=== PATIENT | male | born 1965 | race Caucasian/White ===

== ENCOUNTER → 2020-03-02 12:20 | Outpatient (BNVA) | payer OTHER, SELFPAY | PROVIDERS: Visit Provider Internal Medicine | DX: K40.90 Unilateral inguinal hernia, without obstruction or gangrene, not specified as recurrent (principal) | CPT/HCPCS: 99214 ==

== ENCOUNTER → 2020-03-09 11:13 | Outpatient (BNVA) | payer OTHER, SELFPAY | PROVIDERS: PCP Internal Medicine; Visit Provider Internal Medicine | DX: K40.90 Unilateral inguinal hernia, without obstruction or gangrene, not specified as recurrent (principal) | CPT/HCPCS: 99213 ==

== ENCOUNTER → 2020-03-19 11:12 | Outpatient (BNVA) | payer OTHER, SELFPAY | PROVIDERS: PCP Internal Medicine; Referring Provider Internal Medicine; Visit Provider Surgery | DX: K40.90 Unilateral inguinal hernia, without obstruction or gangrene, not specified as recurrent (principal) | CPT/HCPCS: 99212 ==

== ENCOUNTER 2020-04-03 06:03 | Day surgery (SDC) | payer OTHER, SELFPAY ==
[2020-04-03 06:13] VITALS: BMI 22.8
[2020-04-03 06:26] VITALS: BP 128/83; PULSE 83; RESP 16; TEMP 36.5; O2SAT 98
--- NOTE | 2020-04-03 07:38 | HO.ANESPROP2 ---
[facility] Past Medical History Medical History Left inguinal hernia Social History Social History Alcohol intake: never Smoking Status: Never smoker Use of substances other than those prescribed or required for medical reasons: No Advance Directives: No Meds Allergies Allergy/AdvReac Type Severity Reaction Status Date / Time No Known Allergies Allergy Verified 04/02/20 11:24 Exam Exam Date and Time: April 03, 2020 0738 Height,Weight and Vital Signs: Height 5 ft 9 in Weight 70.307 kg Last Vital Signs Temp 97.7 F 04/03/20 06:26 Pulse 83 04/03/20 06:26 Resp 16 04/03/20 06:26 BP 128/83 04/03/20 06:26 Pulse Ox 98 04/03/20 06:26 Airway Mallampati Class: II TM Dist: >3cm Neck ROM: Full Assessment and Plan Assessment Anesthesia Assessment: Anesthesia Plan Discussed and Chart Reviewed Final Anesthetic Review NPO: Yes ASA Class: I Final Preanesthetic Review: No Changes in Pt Med Stat, Meds/Allgs Chart Reviewed, Consent Obtained/Reviewed and Anes Risks/Benef Reviewed Patient Risk: Low Procedure Risk: Low Assessment/Block/Sedation in SS: Assess/Block/Sedation-SS Anesthetic Plan Anesthetic Plan: GA Disposition: Standard PACU
--- NOTE | 2020-04-03 08:05 | MHC.SHP ---
Pre-Procedural Eval Section B Chief Complaint: Left Inguinal Hernia Allergies: Allergies Allergy/AdvReac Type Severity Reaction Status Date / Time No Known Allergies Allergy Verified 04/02/20 11:24 Plan Patient has been examined and remains a candidate for the planned procedure
--- NOTE | 2020-04-03 09:05 | P.BOP_ITS ---
Brief Operative Note Date of Service: 04/03/20 Pre-op diagnosis: LIH Post-op diagnosis: same Procedure: repair of LIH w/ mesh Implants: mesh/plug Surgeon: Ruben Bunch MD Anesthesia: [facility] Religious Activities Director: Diamond Collins Estimated blood loss (mL): 5 Pathology: none sent Condition: stable Disposition: PACU
[2020-04-03 09:09] VITALS: BP 108/79; PULSE 86; RESP 16; TEMP 36.5; O2SAT 100
[2020-04-03 09:12] VITALS: BP 133/88; PULSE 84; RESP 18; O2SAT 100
[2020-04-03 09:17] VITALS: BP 138/82; PULSE 87; RESP 18; O2SAT 98
[2020-04-03] MEDS: Acetaminophen 325 MG TABLET 650 MG PO (09:22)
[2020-04-03 09:23] VITALS: BP 143/80; PULSE 79; RESP 18; O2SAT 98
[2020-04-03 09:30] VITALS: BP 147/86; PULSE 74; RESP 18; TEMP 36.6; O2SAT 98
--- NOTE | 2020-04-03 10:10 | OP_ITS ---
SURGEON: Ruben Bunch MD INDICATIONS: The patient is a 55-year-old male with a reducible mass in the left groin consistent with left inguinal hernia. In view of symptoms, he wanted to proceed with repair. He understood the technique of repair with mesh. He was aware of the risks, benefits, and alternatives. PREOPERATIVE DIAGNOSIS: Left inguinal hernia. POSTOPERATIVE DIAGNOSIS: Left inguinal hernia, indirect. PROCEDURE PERFORMED: Repair of left inguinal hernia with mesh and plug. ESTIMATED BLOOD LOSS: Less than 5 cc. The patient was extubated without difficulty and transferred to the recovery room with stable vital signs. COMPLICATIONS: There were no complications noted. Initial and final counts of sponges and instruments were correct. ANESTHESIA: General anesthesia via laryngeal mask airway. ASSISTANTS: Diamond Collins PA-C SPECIMENS: DESCRIPTION OF PROCEDURE: He was brought to the operating room and placed supine on the table under general anesthesia via laryngeal mask airway. The left groin was prepped and draped in the usual sterile fashion. A surgical time-out was done. The patient received cefazolin 2 g IV preoperatively. I infiltrated the planned line of incision on the left groin using lidocaine 1%. I made a short incision using blade #15 along an imaginary line from the anterior superior iliac spine to the pubic ramus using blade #15. It was carried down to full-thickness skin and subcutaneous fat down to the external oblique aponeurosis. We proceeded to bluntly dissect the external oblique aponeurosis to expose the external ring. We then divided the external oblique aponeurosis using electrocautery adjacent to the external ring to enter the inguinal canal. I applied graspers on the edges of the external oblique aponeurosis. I then bluntly dissected the underside to create space for the mesh. I then bluntly dissected the spermatic cord and its contents using my index finger until I was able to pass a Mario drain around this. This Mario drain was used for retraction. Identified the vas deferens and accompanying vessels and proceeded then to bluntly dissect what appeared to be a sac off the cord contents. This hernia sac was bluntly away from the rest of the cord contents all the way down to the level of internal ring until this was completely reduced. I reinforced the internal ring with a small sized PerFix plug. This plug was secured with Prolene 2-0 suture to shelving edge of the inguinal ligament, and internal oblique superiorly and medially using the inner leaves of the plug. I reinforced the floor of the canal with a keyhole mesh. The tails of the mesh were passed around the cord at the level of the internal ring and were secured together with Prolene 2-0 sutures. I secured the mesh to the shelving edge of the inguinal laterally and the internal oblique superiorly and medially. We copiously irrigated. Again, please note that this was an indirect hernia as the sac was reduced through the internal ring. After irrigation and suctioning, proceeded to close the external oblique aponeurosis with running Dexon 2-0 stitch to re-create the external ring. We reapposed the subcutaneous layer with Dexon 3-0 sutures. Skin closure achieved with Dexon 4-0 subcuticular running stitch. Steri-Strips and dressings were applied. The incision had been infiltrated with Marcaine 0.5% for postop analgesia. The procedure was completed. The patient tolerated the procedure well. MD PACHECO Temple/JOSE / [id number]
--- NOTE | 2020-04-03 10:47 | HO.POSTANES ---
Post Anesthesia Evaluation Post Anesthesia Evaluation Vital Signs: Vital Signs Temp Pulse Resp BP Pulse Ox 04/03/20 09:30 97.8 F 74 18 147/86 H 98 04/03/20 09:23 79 18 143/80 H 98 04/03/20 09:17 87 18 138/82 98 04/03/20 09:12 84 18 133/88 100 04/03/20 09:09 97.7 F 86 16 108/79 100 04/03/20 06:26 97.7 F 83 16 128/83 98 Anesthesia: General Mental Status: Awake Pain Control: Satisfactory Nausea/Vomiting: None Hydration: Adequate Anesthesia-Related Issues: No Anes. Related Issues
== END 2020-04-03 10:25 | disposition home or self-care (01) ==
PROVIDERS: Visit Provider Surgery
PROC: (CPT 49505; principal; 2020-04-03 08:20)
DX: K40.90 Unilateral inguinal hernia, without obstruction or gangrene, not specified as recurrent (principal)
CPT/HCPCS: 49505; C1781; J0690; J1100; J2405; J3010

== ENCOUNTER → 2020-04-18 11:12 | Outpatient (BNVA) | payer OTHER, SELFPAY | PROVIDERS: PCP Internal Medicine; Referring Provider Internal Medicine; Visit Provider Surgery | DX: K40.90 Unilateral inguinal hernia, without obstruction or gangrene, not specified as recurrent (principal) | CPT/HCPCS: 99212 ==

== ENCOUNTER → 2020-05-09 09:30 | Outpatient (BNVA) | payer OTHER, SELFPAY | PROVIDERS: PCP Internal Medicine; Visit Provider Surgery | DX: K40.90 Unilateral inguinal hernia, without obstruction or gangrene, not specified as recurrent (principal) | CPT/HCPCS: 99212 ==